=== PATIENT | female | born 1965 | race Caucasian/White ===

== ENCOUNTER → 2016-06-24 | Outpatient (CLI) | payer MEDICARE, MEDICAID | LOC: RAD 14:20 | DX: M75.102 Unspecified rotator cuff tear or rupture of left shoulder, not specified as traumatic (principal) ==

== ENCOUNTER → 2016-06-25 | Outpatient (CLI) | payer MEDICARE, MEDICAID ==
[2016-06-25 10:58] LABS: APPEARANCE,URINE CLEAR; BILIRUBIN,URINE NEGATIVE (NEGATIVE); GLUCOSE, URINE NEGATIVE (NEGATIVE); KETONES,URINE NEGATIVE (NEGATIVE); LEUKOCYTE ESTERASE,URINE NEGATIVE (NEGATIVE); NITRITE,URINE NEGATIVE (NEGATIVE); PROTEIN,URINE NEGATIVE (NEGATIVE); URINE SPECIFIC GRAVITY 1.003; UROBILINOGEN,URINE NEGATIVE mg/dL (<2.0)
[2016-06-25 11:00] LABS: ABSOLUTE BASOPHILS # (AUTO) 0.1 10^3/uL (0.0-0.2); ABSOLUTE EOSINOPHILS # (AUTO) 0.2 10^3/uL (0.0-0.6); ABSOLUTE LYMPHOCYTES (AUTO) 2.1 10^3/uL (0.5-4.7); ABSOLUTE MONOCYTES (AUTO) 0.4 10^3/uL (0.1-1.4); ABSOLUTE NEUT (AUTO) 3.3 10^3/uL (1.7-8.2); BASOPHILS % (AUTO) 1.1 % (0-2); EOSINOPHILS % (AUTO) 2.6 % (0-6); HEMATOCRIT 42.9 % (36.0-47.0); HEMOGLOBIN 14.6 g/dL (12.0-15.5); HGB HCT DIFFERENCE 0.9; LYMPHOCYTES % (AUTO) 35.6 % (13-45); MEAN CORPUSCULAR HEMOGLOBIN 29.5 pg (27.0-33.4); MEAN CORPUSCULAR VOLUME 87 fl (80-97); MONOCYTES % (AUTO) 6.1 % (3-13); RED BLOOD COUNT 4.94 10^6/uL (3.72-5.28); RED CELL DISTRIBUTION WIDTH 13.2 % (11.5-14.0); SEGMENTED NEUTROPHILS % (AUTO) 54.6 % (42-78)
[2016-06-25 11:17] LABS: ALANINE AMINOTRANSFERASE 42 U/L (9-52); ALBUMIN 3.8 g/dL (3.5-5.0); ALKALINE PHOSPHATASE 100 U/L (38-126); ANION GAP 16 (5-19); ASPARTATE AMINO TRANSFERASE 24 U/L (14-36); BILIRUBIN,TOTAL 0.4 mg/dL (0.2-1.3); BLOOD UREA NITROGEN 10 mg/dL (7-20); CALCIUM 9.1 mg/dL (8.4-10.2); CARBON DIOXIDE 21 mmol/L (22-30); CHLORIDE 107 mmol/L (98-107); CHOLESTEROL 203.05 mg/dL (0-200); CREATININE RESULT 0.81 mg/dL (0.52-1.25); Direct HDL 35 mg/dL (>40); GLUCOSE 89 mg/dL (75-110); SODIUM 144.4 mmol/L (137-145); TOTAL PROTEIN 6.6 g/dL (6.3-8.2); TRIGLYCERIDES 228 mg/dL (<150)
[2016-06-25 11:28] LABS: DIRECT LDL 140 mg/dL (<100)
[2016-06-25 11:30] LABS: VLDL CHOLESTEROL 45.6 mg/dL (10-31)
== END ==
LOC: OD 08:42
DX: M75.102 Unspecified rotator cuff tear or rupture of left shoulder, not specified as traumatic (principal); J43.9 Emphysema, unspecified; E03.9 Hypothyroidism, unspecified; Z79.899 Other long term (current) drug therapy
CPT/HCPCS: 36415; 71020; 72050; 80053; 80061; 81001; 84443; 85025

== ENCOUNTER → 2017-04-08 | Outpatient (CLI) | payer MEDICARE, MEDICAID ==
--- NOTE | 2017-04-08 14:33 | RADIOLOGY REPORT (SQ) ---
EXAM DESCRIPTION: MRI HEAD COMBO COMPLETED DATE/TIME: 04/08/2017 1:41 pm REASON FOR STUDY: UNSPECIFIED CONVULSIONS/HEADACHE R56.9 UNSPECIFIED CONVULSIONS R51 HEADACHE COMPARISON: CT brain 02/20/2015 TECHNIQUE: Multiplanar imaging includes noncontrasted T1, T2, FLAIR, diffusion with ADC map and post gadolinium contrast T1 sequences. Images stored on PACS. CONTRAST TYPE AND DOSE: 20 mL Multihance. RENAL FUNCTION: GFR > 60. LIMITATIONS: None. FINDINGS: ANATOMY: Normal vascular flow voids. Pituitary fossa normal. CSF SPACES: Normal in size and contour. No hemorrhage. CEREBRUM: There is an old right frontal craniotomy. Focal encephalomalacia is present deep to the cr aniotomy, measuring about 2.6 cm AP x 2.6 cm transverse x 3 cm craniocaudad. Along the deep aspect o f the encephalomalacia, a 7 mm tangle of small enhancing blood vessels is present with a faintly enha ncing very small draining vein, with appearance suggestive of a venous angioma or small cavernoma. O n the gradient echo T2 images, a 10 mm focus of hemosiderin staining is present adjacent to the enhan cing blood vessels. No large tortuous draining vein is identified. No pulsatility artifact. No hernan id enhancing mass is identified. This likely represents a low-flow venous malformation such as a cav ernoma or venous angioma. A capillary telangiectasia is possible. Remainder of the brain parenchyma demonstrates normal signal. No masses or enhancement. No findings worrisome for acute ischemic change. POSTERIOR FOSSA: No signal alteration. No hemorrhage. No edema, masses, or mass effect. Internal janessa tory canals, cerebellopontine angles, mastoids normal. No enhancing lesions. No abnormal enhancement post contrast. DIFFUSION IMAGING: Negative for acute or subacute infarction. ORBITS: No masses. Globes normal. PARANASAL SINUSES: No fluid levels. Mucosa normal. OTHER: No other significant finding. IMPRESSION: Focal encephalomalacia in the right posterior frontal lobe with hemosiderin staining pepper und a 7 mm cluster of enhancing vessels. 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 Capillary telangiectasia is possible. No MR evidence of acute ischemic change or acute intracranial hemorrhage. EVIDENCE OF ACUTE STROKE: NO. TECHNICAL DOCUMENTATION: JOB ID: [id number]- All Rights Reserved
== END ==
LOC: RAD 12:00
PROVIDERS: ATTEND Specialist
DX: R56.9 Unspecified convulsions (principal); R51 Headache
CPT/HCPCS: 82565; 70553; A9577

== ENCOUNTER → 2019-03-01 | Outpatient (CLI) | payer MEDICARE, MEDICAID ==
--- NOTE | 2019-03-01 15:40 | NEURO WORKBENCH EEG REPORT ---
EEG Report Patient: Tyra Harmon ID: [id number] Referring Doctor: Clovis Ojeda MD DOS: 03/01/19 Medications: Vimpat, combivent, emgality, myrbetriq, levothyroxine, montelukast, naproxen, symbicoty History This is a 53 year old left handed woman with a history of COPD, MS, brain surgery, VNS, seizures since 2000 and episodes of zoning out mainly at night. This EEG was requested for seizures EEG Interpretation This EEG was recorded in the awake, drowsy, and sleep states. The awake EEG is characterized by a well-organized background with a well-developed and reactive posterior dominant rhythm of 9Hz. The remainder of the background consisted of a mix of alpha with some beta activity. Drowsiness is characterized by slowing of the background rhythms. Vertex waves and sleep spindles were seen in the midline head regions. Photic stimulation resulted in minimal driving. Hyperventilation resulted in minimal slowing of the background rhythms. There were no epileptiform abnormalities. The EKG showed a normal rhythm. EEG Classification Normal EEG Impression This EEG is within normal limits in the awake, drowsy, and sleep states. There were no epileptiform abnormalities noted. Clinical correlation is recommended. INTERPRETING NEUROLOGIST: Adina Hernandez MD, FRCPC Board Certified in Neurology, with special qualification in Child Neurology, and in Clinical Neurophysiology [facility]
== END ==
LOC: NEURO 12:29
PROVIDERS: ATTEND Pediatrics
DX: G40.909 Epilepsy, unspecified, not intractable, without status epilepticus (principal)
CPT/HCPCS: 95819

== ENCOUNTER → 2019-11-01 | Outpatient (CLI) | payer MEDICARE, MEDICAID ==
--- NOTE | 2019-11-01 13:22 | RADIOLOGY REPORT (SQ) ---
EXAM DESCRIPTION: CT LUNG CANCER SCREENING IMAGES COMPLETED DATE/TIME: 11/01/2019 12:49 pm REASON FOR STUDY: Z87.891 PERSONAL HISTORY OF NICOTINE DEPENDENCE Z87.891 PERSONAL HISTORY OF NICOT INE DEPENDENCE Has the patient had a Chest CT scan within the past year? N Was the patient offered tobacco cessation counseling? Y Was the patient engaged in shared decision making for this test? Y Does the patient have signs or symptoms of Lung Cancer? N Is the patient a smoker? Y How many pack years? 37 How many years since quitting smoking? 0 Patients age: 54 COMPARISON: None. TECHNIQUE: Low Dose CT scan performed of the chest without intravenous contrast for purposes of scre ening for lung cancer. Images reviewed with lung, soft tissue and bone windows. Reconstructed coron al and sagittal MPR images reviewed. All images stored on PACS. All CT scanners at this facility use dose modulation, iterative reconstruction, and/or weight based d osing when appropriate to reduce radiation dose to as low as reasonably achievable (ALARA). [facility]: Dose Right [facility]: CareDose [facility]: Dose Right [facility]: Teradose 4D [facility]: Smart urturn RADIATION DOSE: CT Rad equipment meets quality standard of care and radiation dose reduction techniq ues were employed. CTDIvol: NaN mGy. DLP: 0 mGy-cm. mGy. . LIMITATIONS: None FINDINGS: LUNGS AND PLEURA: No masses or nodules. No pleural effusions or calcifications. No pne umothorax. No scarring or interstitial changes. HILAR AND MEDIASTINAL STRUCTURES: No identified masses. No abnormal nodes. HEART AND VASCULAR STRUCTURES: No aortic aneurysm. No pericardial effusion. No cardiac devices. CORONARY ARTERY CALCIFICATIONS: No significant calcifications. UPPER ABDOMEN, THYROID, BONES, OTHER SOFT TISSUES: No significant findings. IMPRESSION: NO SIGNIFICANT FINDING IN THE LUNGS ON NON-CONTRASTED CHEST CT. NO OTHER CLINICALLY SIGNIFICANT/POTENTIALLY CLINICALLY SIGNIFICANT FINDINGS LUNGRADS: LUNGRADS: 1 NEGATIVE. NO NODULES, OR DEFINITELY BENIGN NODULES MODIFIER: NONE RECOMMENDATION: Continue annual screening with LDCT in 12 months. COMMENT: CRITERIA: No lung nodules. Nodules with specific calcifications: Complete, central, popcorn, concentric rings and fat containin g nodules. TECHNICAL DOCUMENTATION: JOB ID: [id number] Quality ID # [id number]: Final reports with documentation of one or more dose reduction techniques (e.g., Au tomated exposure control, adjustment of the mA and/or kV according to patient size, use of iterative reconstruction technique) 2010 [facility] Reading location - IP/workstation name: [facility]
== END ==
LOC: RAD 12:34
PROVIDERS: ATTEND Registered Nurse
DX: Z87.891 Personal history of nicotine dependence (principal)
CPT/HCPCS: G0297